=== PATIENT | male | born 1955 | race Caucasian/White ===

== ENCOUNTER 2020-01-16 07:46 | Outpatient (CLI) | payer MEDICARE, OTHER ==
[2020-01-16 08:30] LABS: Anion Gap 13 mmol/L (10-20); BUN (Urea Nitrogen) 19 mg/dL (8.4-25.7); Calc. Creatinine Clearance 0 mL/min (70-130); Calcium 9.8 mg/dL (7.8-10.44); Carbon Dioxide 26 mmol/L (23-31); Chloride 100 mmol/L (98-107); Estimated GFR-MDRD 48; Glucose 265 mg/dL (80-115); Phosphorus 3.4 mg/dL (2.3-4.7); Potassium 4.3 mmol/L (3.5-5.1); Sodium 135 mmol/L (136-145)
--- NOTE | 2020-01-16 08:40 | ULT ---
Bilateral renal ultrasound CLINICAL INDICATION: Chronic kidney disease COMPARISON: None FINDINGS: Right kidney: There is no evidence of a renal mass, renal calculus, or hydronephrosis seen. The right kidney measures 10.8 cm x 5 cm. Left kidney: There is no evidence of a renal mass, renal calculus, or hydronephrosis. The left kidney measures 12.1 cm x 5 cm. Urinary bladder: Incompletely distended but otherwise grossly within normal limits. Urinary bladder v olume is 108 mL. Limited imaging of the right hepatic lobe demonstrates increased echogenicity of the visualized right hepatic lobe suggesting fatty infiltration of the liver. IMPRESSION: 1. Normal-appearing bilateral kidneys without evidence of renal cortical thinning or hydronephrosis. 2. Fatty infiltration of the visualized right hepatic lobe.
[2020-01-16 18:13] LABS: Protein, Urine Random Quant Less than 10 mg/dL (1-14)
== END 2020-01-16 07:47 | disposition home or self-care (01) ==
LOC: MADRAD 07:46
PROVIDERS: ATTEND Internal Medicine Nephrology
DX: I12.9 Hypertensive chronic kidney disease with stage 1 through stage 4 chronic kidney disease, or unspecified chronic kidney disease (principal); E11.22 Type 2 diabetes mellitus with diabetic chronic kidney disease; N18.3 Chronic kidney disease, stage 3 (moderate); E11.00 Type 2 diabetes mellitus with hyperosmolarity without nonketotic hyperglycemic-hyperosmolar coma (NKHHC); R80.9 Proteinuria, unspecified
CPT/HCPCS: 36415; 76770; 80048; 82306; 82570; 83970; 84100; 84156

== ENCOUNTER 2021-06-01 09:17 | Outpatient (CLI) | payer MEDICARE, OTHER | END 2021-06-01 09:18 | disposition home or self-care (01) | LOC: MADULT 09:17 | PROVIDERS: ATTEND Student in an Organized Health Care Education/Training Program | DX: Z13.6 Encounter for screening for cardiovascular disorders (principal) | CPT/HCPCS: 76706 ==